=== PATIENT | male | born 1990 | race Caucasian/White ===

== ENCOUNTER 2024-07-23 07:54 | Emergency (ER) | payer OTHER, SELFPAY ==
[2024-07-23 07:59] VITALS: BP 138/103
--- NOTE | 2024-07-23 09:01 | ED.GENMED ---
History of Present Illness
General
Chief Complaint: Skin Surface Trauma
Source: patient
Exam Limitations: none
Time Seen by Provider: 07/23/24 08:53
Nursing documentation reviewed up to this point in time: agreed with
History of Present Illness
History of Present Illness:
34 y/o M with no sig pmh
left hand dominance
was at work and used impact hammer and accitentally drilled into his right index finger palmar surface
bleeding controlled
puncture wound
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
no change to this
needs tetanus
pain is 6/10
Past History
Past History
ED Past Medical History: None
ED Past Surgical History: None
Social History
Tobacco: Non-smoker
Alcohol: None
Drug: None
Personal:
Living: with family
Employment: Employed
Review of Systems
Review of Systems
Allergies reviewed?: Yes
All Other Systems: Not applicable
Phy Exam
Physical Exam
Physical Exam:
GENERAL: Alert , in no apparent distress
CARDIAC: Cap refill intact, radial pulse 2+
NEUROLOGICAL: Alert and oriented, no focal neuro deficits sensation intact to the right index finger
SKIN: Warm and dry, irregularly shaped small puncture wound approximately 0.5 cm to the palmar surface of the right index finger at the DIP joint, bleeding controlled
MUSCULOSKELETAL: No soft tissue swelling, laceration as above,
Slightly limited flexion at the DIP joint, this is symmetric to the other side, there is no bony tenderness
PSYCH: Normal and appropriate interaction.
Course
Orders/Labs/Results
Orders:
Orders
07/23/24 09:00
Finger(s)/Thumb 2 View Rt [CR Finger(s)/thumb Min 2 Vw Rt] Urgent
Comment:
Reason For Exam: right index finger puncture with equipment
07/23/24 09:01
Ibuprofen [Motrin] 600 mg PO NOW STA
Tetanus/Diphth/Acelpertussis [Adacel] 0.5 ml IM .ONCE ONE
Vital Signs
Initial and Last Documented VS:
Initial Vital Signs
Temp Pulse Resp BP Pulse Ox
98.4 F 67 20 138/103 96
07/23/24 07:59 07/23/24 07:59 07/23/24 07:59 07/23/24 07:59 07/23/24 07:59
Last Documented Vital Signs
Temp Pulse Resp BP Pulse Ox
98.4 F 67 20 138/103 96
07/23/24 07:59 07/23/24 07:59 07/23/24 07:59 07/23/24 07:59 07/23/24 07:59
MDM/Problems Addressed
Differential Diagnosis Includes:
laceration, puncture, open fracture
MDM/Problems Addressed:
34 y/o R index finger puncture/laceration from a tool he was using at work
has a small 0.25 cm puncture laceration to the volar fingertip
he has chroincally fused DIP of both index fingers, no change to this chronic limited ROM
normal sensation
tetanus updated
xray indep reviewed and no fb and no fx
irrigated
closed with sterristrips
fniger splint
wound care instructions
*Critical Care Note
Total Time (30-74mins, 75-104mins- exclusive of procedures): Not Applicable
ED Attending Note
-
Portions of this chart may have been created with voice recognition software.� Occasional wrong word or��sound alike� substitutions may have occurred due to the inherent limitations of voice recognition software.
Discharge Plan
Departure
Patient Disposition: Home (Routine Discharge)
Date of Disposition: 07/23/24
Time of Disposition: 09:40
Patient with high blood pressure during this ER visit?: Yes
Condition: Fair
Discharge Problem:
Puncture wound of finger
Instructions: Wound Care (DC)
Stand Alone Forms: Return to Work
Activity Restrictions/Additional Instructions:
There was no evidence of a bony injury. For your puncture wound we applied some Steri-Strips and a dressing. Leave this in place for 2 days, use the finger splint to keep your finger straight
You were given a tetanus shot today. You can take ibuprofen for pain every 8 hours as needed.
Return for any concerns like swelling, drainage, redness, bleeding, severe pain, fever etc. Otherwise this should heal on its own.
Interventions
Interventions:
*Risk Screen - Suicide Last Done: 07/23/24 09:00
*Neglect/Abuse Screening Last Done: 07/23/24 09:00
*ED COVID-19 Vaccine History Last Done: 07/23/24 09:00
*Nursing Disposition Last Done: 07/23/24 09:59
ED-Skin Assessment Last Done: 07/23/24 09:00
Discharge Date and Time
Discharge Date/Time: 07/23/24 10:10
Print Language: GERMAN
[2024-07-23] MEDS: MOTRIN 600 MG PO (09:08)
[2024-07-23] MEDS: ADACEL 0.5 ML IM (09:08)
== END 2024-07-23 10:10 | disposition home or self-care (01) ==
LOC: EMR 07:54
PROVIDERS: EMERGENCY PHYSICIAN Student in an Organized Health Care Education/Training Program; FAMILY PHYSICIAN Family Medicine
DX: S61.210A Laceration without foreign body of right index finger without damage to nail, initial encounter (principal); W29.8XXA Contact with other powered hand tools and household machinery, initial encounter; Y99.0 Civilian activity done for income or pay; Z23 Encounter for immunization
CPT/HCPCS: 99283; 90471; 29130; 73140; 90715